=== PATIENT | male | born 1980 | race African-American/Black ===

== ENCOUNTER 2018-11-21 00:14 | Emergency (ER) | payer SELFPAY ==
--- NOTE | 2018-11-21 01:43 | ER ---
Nurse's Notes [facility] Name: Mohit Montano Age: 38 yrs Sex: Male : 1980 Arrival Date: 11/21/2018 Time: 00:18 Bed 5 Private MD: Diagnosis: Other specified sprain of right wrist Presentation: 11/21 00:41 Presenting complaint: Patient states: he works on a [employer] and was working bb earlier today when he felt a "pinch" in his right wrist it did not start hurting at that time but later this evening it started hurting and he wanted to have it checked. Transition of care: patient was not received from another setting of care. Onset of symptoms was November 21, 2018. Risk Assessment: Do you want to hurt yourself or someone else? Patient reports no desire to harm self or others. Initial Sepsis Screen: Does the patient meet any 2 criteria? No. Patient's initial sepsis screen is negative. Does the patient have a suspected source of infection? No. Patient's initial sepsis screen is negative. Care prior to arrival: None. 00:41 Method Of Arrival: Ambulatory bb 00:41 Acuity: DILMA 4 bb Historical: - Allergies: 00:44 No Known Allergies; bb - Home Meds: 00:44 Metformin Oral [Active]; Simvastatin Oral [Active]; Lisinopril Oral [Active]; bb - PMHx: 00:44 Diabetes - NIDDM; bb - PSHx: 00:44 Hernia repair; left ankle surgery; bb - Immunization history:: Adult Immunizations up to date. - Social history:: Smoking status: Patient/guardian denies using tobacco. - Ebola Screening: : No symptoms or risks identified at this time. Screenin:44 Abuse screen: Denies threats or abuse. Denies injuries from another. Nutritional lp1 screening: No deficits noted. Tuberculosis screening: No symptoms or risk factors identified. Fall Risk None identified. Assessment: 00:42 General: Appears in no apparent distress. Behavior is calm, cooperative, appropriate lp1 for age. Pain: Complains of pain in lateral aspect of right wrist Quality of pain is described as aching. Neuro: Level of Consciousness is awake, alert, obeys commands. Cardiovascular: Patient's skin is warm and dry. Respiratory: Respiratory effort is even, unlabored. GI: No deficits noted. : No deficits noted. EENT: No deficits noted. Derm: Skin is intact, Skin is dry, Skin is normal. Musculoskeletal: Circulation, motion, and sensation intact. Range of motion: intact in all extremities, Reports pain in right wrist. Vital Signs: 00:44 BP 139 / 86; Pulse 84; Resp 16 S; Temp 98.1(O); Pulse Ox 99% on R/A; Weight 123.83 kg bb (R); Height 5 ft. 7 in. (170.18 cm) (R); Pain 0/10; 00:44 Body Mass Index 42.76 (123.83 kg, 170.18 cm) bb ED Course: 00:18 Patient arrived in ED. cl3 00:28 Jaron De eLon PA is PHCP. jr8 00:28 Keith Grigsby MD is Attending Physician. jr8 00:29 Stephanie Hernandez, RN is Primary Nurse. lp1 00:43 Triage completed. bb 00:44 No provider procedures requiring assistance completed. Patient did not have IV access lp1 during this emergency room visit. 00:44 Arm band placed on Patient placed in an exam room, on a stretcher, on pulse oximetry. bb 00:45 Patient has correct armband on for positive identification. lp1 01:21 X-ray completed. Portable x-ray completed in exam room. Patient tolerated procedure kw well. 01:24 Wrist Right 3 View XRAY In Process Unspecified. EDMS 01:52 Velcro wrist splint applied to right wrist. lp1 Administered Medications: 01:52 Not Given (Patient Refused): Ibuprofen 800 mg PO once lp1 Outcome: 01:42 Discharge ordered by . jr8 01:52 Discharged to home ambulatory. lp1 01:52 Condition: good 01:52 Discharge instructions given to patient, Instructed on discharge instructions, follow up and referral plans. medication usage, Demonstrated understanding of instructions, follow-up care, medications, Prescriptions given X 1. 01:52 Patient left the ED. lp1 Signatures: Dispatcher [employer] EDCA Michelle Bowers RN RN bb Holli Abdi Laura, MADELIN RN lp1 Jaron De Leon PA PA jr8 Angeles Sahu cl3
--- NOTE | 2018-11-21 01:44 | EDPHYS ---
Physician Documentation [facility] Name: Mohit Montano Age: 38 yrs Sex: Male : 1980 Arrival Date: 11/21/2018 Time: 00:18 Bed 5 Private MD: ED Physician Keith Grigsby HPI: 11/21 01:20 This 38 yrs old Black Male presents to ER via Ambulatory with complaints of Wrist jr8 Injury. 01:20 The patient or guardian reports pain. The complaints affect the right wrist diffusely. jr8 Context: The problem was sustained at work, resulted from lifting or pulling. Onset: The symptoms/episode began/occurred today. Pt was at work and moving an object, felt a pop in the right wrist and is since having ulnar sided wrist pain. . Historical: - Allergies: 00:44 No Known Allergies; bb - Home Meds: 00:44 Metformin Oral [Active]; Simvastatin Oral [Active]; Lisinopril Oral [Active]; bb - PMHx: 00:44 Diabetes - NIDDM; bb - PSHx: 00:44 Hernia repair; left ankle surgery; bb - Immunization history:: Adult Immunizations up to date. - Social history:: Smoking status: Patient/guardian denies using tobacco. - Ebola Screening: : No symptoms or risks identified at this time. ROS: 01:20 Constitutional: Negative for fever, chills, and weight loss, Eyes: Negative for injury, jr8 pain, redness, and discharge, ENT: Negative for injury, pain, and discharge, Neck: Negative for injury, pain, and swelling, Cardiovascular: Negative for chest pain, palpitations, and edema, Respiratory: Negative for shortness of breath, cough, wheezing, and pleuritic chest pain, Abdomen/GI: Negative for abdominal pain, nausea, vomiting, diarrhea, and constipation, Back: Negative for injury and pain, Skin: Negative for injury, rash, and discoloration, Neuro: Negative for headache, weakness, numbness, tingling, and seizure. 01:20 MS/extremity: Positive for pain, of the lateral aspect of right wrist. Exam: 01:20 Hand exam: ROM: intact in all extremities, Circulation is intact in all extremities. jr8 sensation intact. Joints: All joints appear normal with full range of motion. 01:20 Constitutional: This is a well developed, well nourished patient who is awake, alert, and in no acute distress. Head/Face: Normocephalic, atraumatic. Eyes: Pupils equal round and reactive to light, extra-ocular motions intact. Lids and lashes normal. Conjunctiva and sclera are non-icteric and not injected. Cornea within normal limits. Periorbital areas with no swelling, redness, or edema. ENT: Nares patent. No nasal discharge, no septal abnormalities noted. Tympanic membranes are normal and external auditory canals are clear. Oropharynx with no redness, swelling, or masses, exudates, or evidence of obstruction, uvula midline. Mucous membranes moist. Neck: Trachea midline, no thyromegaly or masses palpated, and no cervical lymphadenopathy. Supple, full range of motion without nuchal rigidity, or vertebral point tenderness. No Meningismus. Chest/axilla: Normal chest wall appearance and motion. Nontender with no deformity. No lesions are appreciated. Cardiovascular: Regular rate and rhythm with a normal S1 and S2. No gallops, murmurs, or rubs. Normal PMI, no JVD. No pulse deficits. Respiratory: Lungs have equal breath sounds bilaterally, clear to auscultation and percussion. No rales, rhonchi or wheezes noted. No increased work of breathing, no retractions or nasal flaring. Abdomen/GI: Soft, non-tender, with normal bowel sounds. No distension or tympany. No guarding or rebound. No evidence of tenderness throughout. Back: No spinal tenderness. No costovertebral tenderness. Full range of motion. Skin: Warm, dry with normal turgor. Normal color with no rashes, no lesions, and no evidence of cellulitis. Vital Signs: 00:44 BP 139 / 86; Pulse 84; Resp 16 S; Temp 98.1(O); Pulse Ox 99% on R/A; Weight 123.83 kg bb (R); Height 5 ft. 7 in. (170.18 cm) (R); Pain 0/10; 00:44 Body Mass Index 42.76 (123.83 kg, 170.18 cm) bb MDM: 01:10 Patient medically screened. jr8 01:41 Data reviewed: vital signs, nurses notes, radiologic studies, plain films, and as a jr8 result, I will discharge patient. Data interpreted: Pulse oximetry: on room air is 99 %. Counseling: I had a detailed discussion with the patient and/or guardian regarding: the historical points, exam findings, and any diagnostic results supporting the discharge/admit diagnosis, radiology results. Medication response: ibuprofen administration has improved the patient's pain. Response to treatment: the patient's symptoms have mildly improved after treatment. 11/21 01:08 Order name: Wrist Right 3 View XRAY jr8 11/21 01:41 Order name: Wrist Splint: velcro; Complete Time: :52 8 Administered Medications: 01:52 Not Given (Patient Refused): Ibuprofen 800 mg PO once lp1 Disposition: 07:52 Co-signature as Attending Physician, Keith Grigsby MD I agree with the assessment and tw4 plan of care. Disposition: 11/21/18 01:42 Discharged to Home. Impression: Other specified sprain of right wrist. - Condition is Stable. - Discharge Instructions: Wrist Sprain. - Prescriptions for Ibuprofen 800 mg Oral Tablet - take 1 tablet by ORAL route every 12 hours As needed take with food; 20 tablet. - Medication Reconciliation Form, Thank You Letter form. - Follow up: Private Physician; When: 10 - 14 days; Reason: Recheck today's complaints, Continuance of care, Re-evaluation by your physician. - Problem is new. - Symptoms have improved. Signatures: Dispatcher [employer] EDMichelle Sexton RN RN Stephanie Hernandez RN RN lp1 Jaron De Leon, PA PA jr8 Keith Grigsby MD MD tw4 Corrections: (The following items were deleted from the chart) 01:52 01:42 11/21/2018 01:42 Discharged to Home. Impression: Other specified sprain of right lp1 wrist. Condition is Stable. Forms are Medication Reconciliation Form, Thank You Letter, Antibiotic Education, Prescription Opioid Use. Follow up: Private Physician; When: 10 - 14 days; Reason: Recheck today's complaints, Continuance of care, Re-evaluation by your physician. Problem is new. Symptoms have improved. jr8
[2018-11-21 02:42] VITALS: BP 139/86; TEMP 98.1; O2SAT 99
--- NOTE | 2018-11-21 08:18 | RAD REPORT ---
EXAM DESCRIPTION: RAD - Wrist Right 3 View - 11/21/2018 1:25 am CLINICAL HISTORY: PAIN Pain COMPARISON: No comparisons FINDINGS: No fracture or dislocation seen. No foreign body or other soft tissue abnormality. IMPRESSION: Negative examination.
== END 2018-11-21 01:52 | disposition home or self-care (01) ==
LOC: ER 00:14
DX: S63.591A Other specified sprain of right wrist, initial encounter (principal); E11.9 Type 2 diabetes mellitus without complications; X50.0XXA Overexertion from strenuous movement or load, initial encounter; Y93.89 Activity, other specified; Y92.9 Unspecified place or not applicable; Y99.0 Civilian activity done for income or pay
CPT/HCPCS: 99284